=== PATIENT | male | born 1965 | race Caucasian/White ===

== ENCOUNTER 2019-01-23 18:18 | Emergency (ER) | payer OTHER, MEDICAID, SELFPAY ==
[2019-01-23 18:29] VITALS: BP 139/89; PULSE 103; RESP 12; TEMP 36.8; O2SAT 98; BMI 27.0
--- NOTE | 2019-01-23 19:07 | ED_ITS ---
HPI - Skin/Abscess/Foreign Bdy General Chief complaint: Skin/Abscess/Foreign Body Stated complaint: states infection in feet, legs Time Seen by Provider: 01/23/19 18:28 Source: patient Mode of arrival: ambulatory Limitations: no limitations History of Present Illness HPI narrative: Patient is a 53-year-old male chronic IVDA user presenting with 2 case management workers. He has chronic wounds some on his back and his toes. He states he was admitted at [facility] a week ago when he left Against Medical Advice. It seems as though he has osteomyelitis in left toe,, he states he left Against Medical Advice because they were not treating his withdrawal symptoms while he was admitted to the hospital. 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 He is mostly concerned about the increase in pain and withdrawal symptoms he is having. He does have a history of epidural abscess, he has draining sores in his back which she states have been there for some time. He has some mild erythema of his bilateral lower extremities and chronic wounds on his toes. He has not had any fever or chills. He denies any loss of urine or stool. No urinary retention. He states none of his wounds are new. Related Data Previous Rx's Medication Instructions Recorded levofloxacin [Levaquin] 750 mg PO DAILY #10 tab 01/23/19 Review of Systems Review of Systems ROS Unobtainable: All systems reviewed & are unremarkable except as noted in HPI and below Constitutional Denies chills, Denies fever(s), Denies lethargy and Denies weakness Eyes Denies change in vision, Denies eye discharge, Denies irritation and Denies loss of vision ENT Ears, Nose, Mouth, and Throat: Denies change in voice, Denies neck pain and Denies sore throat Cardiovascular Denies chest pain, Denies irregular heart rhythm, Denies lightheadedness, Denies palpitations, Denies dyspnea, Denies dyspnea on exertion and Denies orthopnea Respiratory Denies cough, Denies dyspnea, Denies dyspnea on exertion and Denies wheezing Gastrointestinal Gastrointestinal: Denies abdominal pain, Denies change in bowel habits, Denies diarrhea, Denies nausea and Denies vomiting Genitourinary Denies hematuria, Denies flank pain, Denies urinary incontinence and Denies urinary urgency Musculoskeletal Reports as per HPI and Denies neck pain Integumentary/Breasts Reports as per HPI Neurologic Denies loss of vision and Denies weakness Endocrine Denies palpitations Allergic/Immunologic Denies wheezing [facility] Medical History Epidural abscess (Acute) IV drug abuse (Acute) Social History (Updated 01/24/19 @ 02:25 by Maddie Sauceda DO) Smoking Status: Current every day smoker substance use type: IV drugs Social History Smoking Status: Current every day smoker substance use type: IV drugs Exam Initial Vital Signs Initial Vital Signs: Vital Signs Temperature 98.2 F 01/23/19 18:29 Pulse Rate 103 H 01/23/19 18:29 Respiratory Rate 12 01/23/19 18:29 Blood Pressure 139/89 01/23/19 18:29 Pulse Oximetry 98 01/23/19 18:29 GENERAL: Alert male and in no acute distress. HEENT: Head atraumatic,EOMI, pupils reactive, face symmetric, moist mucous membranes CARDIOVASCULAR: Regular rate and rhythm without murmurs, rubs or gallops. RESPIRATORY: Breath sounds equal bilaterally, no wheezes rales or rhonchi. ABDOMEN: Soft, nontender. Normoactive bowel sounds all 4 quadrants. No guarding or rebound. BACK: No vertebral tenderness no step-off EXTREMITIES: Normal range of motion, no clubbing or edema. Neurovascularly i ntact NEUROLOGICAL: Alert and oriented x4.Normal gait and speech. Cranial nerves II through XII grossly intact. 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 He has 2 small chronic wounds in his lower back 1 on the left is 0.25 cm which has gross pus draining from it no erythema no fluctuation. Course Orders Ordered: Discontinued Medications Sodium Chloride (Normal Saline 0.9%) 1,000 mls @ 200 mls/hr IV CONT JAYLA Consultations Consultation #1: Dr. Martínez Time: 19:05 Vital Signs - 8 hr 01/23/19 18:29 Temperature 98.2 F Pulse Rate 103 H Respiratory Rate 12 Blood Pressure 139/89 Pulse Oximetry 98 MDM - Skin/Abscess/Foreign Bdy MDM Narrative Medical decision making narrative: Before patient is allowing us to look into his infections he is adamant that we treat his withdrawal symptoms. He has been offered Zofran and clonidine which he states does not work for him. He is requesting methadone or Suboxone. He is scheduled to get set up with 1 of these on Sunday which is 3 days. I have explained that unfortunately I cannot write for these medications, his case specialist understand this. I have called and spoken to the admitting hospitalist to does not think he can write for Suboxone he has not had any draining. I have explained to patient that he likely needs long-term IV antibiotics is recommend that we do blood work I am happy to give him some medications for pain does not opiate medications. At this time patient is refusing a states he would rather go back to [facility] where they are treating his withdrawal symptoms. The patient is slightly tachycardic but afebrile. Wounds do appear chronic wound culture was taken Discharge Plan Departure Patient Disposition: Home Clinical Impression: Cellulitis Qualifiers: Site of cellulitis: unspecified site Qualified Code(s): L03.90 - Cellulitis, unspecified Discharge Date/Time: 01/23/19 19:11 Interventions: ED Discharge Assessment Last Done: 01/23/19 19:10 Instructions: DI for Cellulitis -- Child Activity Restrictions/Additional Instructions: It is recommended that you have blood work and IV antibiotics. You have multiple wounds which need addressing and management. Infection in year right toe has likely gone to your bone. -Levaquin 750 mg once a day for 10 days Return to ER if you should have any new or worsening problems Prescriptions: New levofloxacin [Levaquin] 750 mg tablet 750 mg PO DAILY Qty: 10 RF: 0
--- NOTE | 2019-01-23 19:07 | PC.NURSE ---
Pt concerned about withdrawing from heroin. Pt declines all care until he can know what he will get for his symptoms. Dr. Sauceda at bedside talking with pt and sponsors..
== END 2019-01-23 19:11 | disposition home or self-care (01) ==
PROVIDERS: Emergency Provider Emergency Medicine
DX: L03.90 Cellulitis, unspecified (principal)
CPT/HCPCS: 99282; 99283